=== PATIENT | male | born 1965 | race Caucasian/White ===

== ENCOUNTER 2016-11-25 06:16 | Observation (INO) | payer OTHER ==
--- NOTE | ~2016-11-25 | HP ---
Unit #: [id number] #: [id number] Patient: NAV DOLL [id number] [address] [place], [place] [address] [id number] I MR#: [id number] NAME: NAV DOLL ROOM: 568 Age: 51 Sex: M Admission Date: 11/25/2016 : 1965 Attending Physician: Denis Pat M.D. Primary Care Physician: Vandana Mckoy M.D. HISTORY AND PHYSICAL HISTORY OF PRESENT ILLNESS This is a 51-year-old white male who presented to [facility] (1) and also complained of chest pain. He says he had left substernal chest pain as well as upper abdominal pain associated with shortness of breath and nausea. The pain lasts for 10 to 15 minutes in duration over an hour and a half. He later developed nausea. There was some radiation to his left arm where his hand and forearm felt numb. In the emergency room at [facility], his troponin was initially negative. EKG normal. He denies a history of hypertension, hyperlipidemia or diabetes. His only risk factor for ischemic heart disease is nicotine abuse. He has had no prior cardiac history of testing. He has been taken off Xanax, Soma and a muscle relaxer over the last one month and has been unable to sleep. He usually exercises at work on a regular basis without chest pain. He was given sublingual nitroglycerin which resolved his chest pain but his left arm pain continued. PAST MEDICAL HISTORY 1. Chronic back pain. 2. History of cervical degenerative disc disease with ablation. 3. Insomnia. 4. Active smoker. PAST SURGICAL HISTORY 1. Sinus surgery. 2. Cervical ablation. 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 He smokes 15 cigarettes a day for the past 30 years. He denies illicit drug and alcohol use. FAMILY HISTORY Negative for coronary artery disease. ALLERGIES No known drug allergies. HOME MEDICATIONS Currently, not on any home medications. REVIEW OF SYSTEMS A 10-point review of systems negative except detailed as stated in the HPI. Unit #: [id number] #: [id number] Patient: NAV DOLL PHYSICAL EXAMINATION GENERAL APPEARANCE: This is a well-developed, white male who is in no acute respiratory distress. VITAL SIGNS: Blood pressure 131/84. Heart rate 62. Temperature 97.9. NEUROLOGIC: He is awake, alert and oriented. There are no focal weaknesses. NECK: Trachea is midline. No thyromegaly, lymphadenopathy. No jugular venous distention. HEART: S1, S2 heart sounds are normal. No murmurs, rubs or clicks. Regular rate and rhythm. LUNGS: Clear without rales, rhonchi or wheezes. ABDOMEN: Soft, nontender with bowel sounds present. EXTREMITIES: Without leg edema. SKIN: Warm and dry. DIAGNOSTIC STUDIES LABORATORY: Troponin 0.03. Sodium 140, potassium 3.7, BUN 10, creatinine 0.97, glucose 135. White count 6.5, hemoglobin 16.4, hematocrit 46.7, platelet count 211. Cholesterol 295, triglycerides 565, HDL 37. CARDIOVASCULAR: EKG: Normal sinus rhythm with a rate of 86 beats per minute. IMPRESSION 1. Chest pain, rule out ischemic heart disease. 2. Anxiety/depression. 3. Chronic pain syndrome. PLAN 1. The patient has minimal risk factors for ischemic heart disease. Myocardial infarction has been ruled out with negative troponin and no acute ischemic changes. We will proceed with exercise Cardiolite stress test to rule out ischemic heart disease. 2. Fasting lipid profile will be done. 3. We will ask Dr. London to see the patient for a psychiatric evaluation for control of his anxiety and depression. 4. 2-D echocardiogram will be done to evaluate left ventricular systolic function. ADDENDUM The patient underwent exercise Cardiolite stress test where he ambulated on the treadmill for 8 minutes without chest pain. Images, preliminary, show no ischemic changes. Echocardiogram is currently pending. The patient can be discharged home today after seen by Dr. Reyes. He can follow up with his primary care physician in two to three weeks. Will start on lipid lowering agent with Lipitor 40 mg q.h.s. for control of lipids. Advised the patient to stop smoking. Dictated by Alex Alfred A.P.R.N. for Stephen Campbell/marbella TD: 11/25/2016 13:58 JOB #: [id number] Unit #: [id number] #: [id number] Patient: NAV DOLL HISTORY AND PHYSICAL Page 1 of 1 X Alex Alfred APRN X HISTORY AND PHYSICAL
--- NOTE | ~2016-11-25 | TH ---
Unit #: [id number] #: [id number] Patient: NAV DOLL [id number] [address] [address] [id number] I MR#: [id number] NAME: NAV DOLL : 1965 SEX: M STUDY DATE/TIME: 11/27/2016 UNIT: [facility] ROOM: [facility] STUDY DESCRIPTION: Attending Physician: Denis Pat M.D. Primary Care Physician: Vandana Mckoy M.D. CARDIOLOGY REPORT EXAM Exercise Cardiolite stress test, nuclear portion. PROCEDURE Using technetium 99m labeled Cardiolite, rest and stress SPECT images were obtained. Multiple SPECT images were obtained in various views including horizontal and vertical long axis and short axis views of the left ventricle. Images were obtained by gated SPECT method. The patient was administered 10.93 mCi of Cardiolite at rest. The patient was administered 34.4 mCi of Cardiolite at peak exercise. Total exercise time is 8 minutes. On the stress images, there is a very small area of mild decreased isotope activity in the anteroapical wall. The rest images show normal perfusion. Comparing rest and stress images, there is an extremely small area of mild decreased isotope activity in the anteroapical wall of the left ventricle. The left ventricular ejection fraction is calculated to be 69%. There is no focal wall motion abnormality seen. CONCLUSION 1. Suspicion for a small area of stress-induced ischemia involving the anteroapical wall of the left ventricle. 2. The left ventricular ejection fraction is calculated to be 69%. 3. There is no focal wall motion abnormality seen. 4. Abnormal exercise Cardiolite stress test suspicious for coronary artery disease. Clinical correlation is requested. Dictated by... Stephen Fang TD: 11/27/2016 14:39 JOB #: [id number] Unit #: [id number] #: [id number] Patient: NAV DOLL CARDIOLOGY REPORT Page 1 of 1 X Bibi Austin MD <ELECTRONICALLY SIGNED> 01/04/17 1524 CARDIOLOGY REPORT
--- NOTE | ~2016-11-25 | ST ---
Unit #: [id number] #: [id number] Patient: NAV DOLL [id number] [address] [address] [id number] I MR#: [id number] NAME: NAV DOLL : 1965 SEX: M STUDY DATE/TIME: UNIT: [facility] ROOM: [facility] STUDY DESCRIPTION: Stress Test Attending Physician: Denis Pat M.D. Primary Care Physician: Vandana Mckoy M.D. CARDIOLOGY REPORT EXAM Exercise Cardiolite Stress Test FINDINGS Baseline EKG shows normal sinus rhythm with a rate of 79 beats per minute with nondiagnostic Q waves noted in the inferior leads. The patient exercised on the treadmill using Stefan protocol for 8 minutes achieving a workload of 10.00 METs. 101% of the maximum age predicted heart rate was reached at 171 beats per minute with a maximum blood pressure response of 160/90 mmHg. The patient had no complaints of chest pain, palpitations or dizziness. EKG during exercise showed downsloping ST segment depression of 1 mm in leads V4 through V6. There was also a downsloping ST depression in the inferior leads. EKG returned to baseline in the recovery phase. The test was terminated secondary to achieving target heart rate. IMPRESSION 1. Functional class 1 with good exercise tolerance with a workload of 10.00 METs. 2. 101% of the maximal age predicted heart rate was reached at 171 beats per minute with a hypertensive blood pressure response. 3. EKG during exercise shows a downsloping ST-T depression of 1 mm in the inferior leads as well as V3 through V6 resolved in the recovery phase. 4. Cardiolite was injected at peak exercise with radionuclide test pending. Please correlate these results with nuclear images. Dictated by... Alex Alfred A.P.R.N. for Stephen Campbell/manoj TD: 11/25/2016 14:33 JOB #: [id number] Unit #: [id number] #: [id number] Patient: NAV DOLL CARDIOLOGY REPORT Page 1 of 1 X Alex Alfred APRN CARDIOLOGY REPORT
--- NOTE | ~2016-11-25 | CO ---
Unit #: [id number] #: [id number] Patient: NAV DOLL [id number] [facility]. [place], [place] [address] [id number] I MR#: [id number] NAME: NAV DOLL ROOM: 568 Age: 51 Sex: M Admission Date: 11/25/2016 : 1965 Attending Physician: Denis Pat M.D. Primary Care Physician: Vandana Mckoy M.D. Consultation Date: 11/25/2016 CONSULTATION REPORT REASON FOR CONSULTATION Depression and anxiety. HISTORY OF PRESENT ILLNESS Mr. Doll is a 51-year-old male, seen in room 558, bed 1, on 11/25/2016 at [facility]. The patient was admitted on 11/25/2016 due to chest pain. The patient reported having a lot of problems with the anxiety. The patient reported he was on Xanax for long period of time. Subsequently, this was stopped and having lot of problem with the anxiety and depression. The patient denied any use of any drugs or alcohol. The patient has an outpatient followup with a primary care physician. The patient also reported racing thoughts, unable to shut down his brain and sleep. Denied any suicidal or homicidal ideation. The patient's vital signs; temperature 97.9, pulse 62, respirations 16, blood pressure 134/84, and oxygen saturation 98%. PAST PSYCHIATRIC HISTORY Remarkable for history of anxiety and depression outpatient treatment. No history of any suicide attempt or any inpatient psychiatric treatment. MEDICAL HISTORY Remarkable for high cholesterol. MEDICATIONS Lipitor. FAMILY HISTORY AND SOCIAL HISTORY The patient has a good support system. No history of abuse. No history of any substance abuse. REVIEW OF SYSTEMS Complete review of systems unremarkable except as mentioned above. Vital signs, please see above. MENTAL STATUS EXAMINATION General appearance; the patient is dressed casually, lying comfortably in bed, dressed in hospital attire. Attention span and concentration, fair. Speech, regular rate and somewhat pressured. Oriented in time, place, and person. Mood and affect, sad, dysphoric, anxious. Thought process, coherent. Thought content, the patient denied any thoughts of harming self or others or any psychotic symptom. Recent and remote memory, fair. Language, intact. Fund of knowledge, fair. Insight and judgment, fair to slightly impaired. Unit #: [id number] #: [id number] Patient: NAV DOLL DIAGNOSES Psychiatric: Major depressive disorder, recurrent, severe, F33.2; anxiety disorder, not otherwise specified, F40.01. Secondary diagnosis: Deferred. Medical diagnosis: Please refer to H and P. Stressors: Psychosocial stressors. ASSESSMENT/PLAN 1. Supportive psychotherapy and psychoeducation were provided to the patient. 2. Educated about benefits and side effects of medication and course and prognosis of illness. 3. Advised to start the patient on Vistaril 25 mg t.i.d. for anxiety, Zyprexa 10 mg at bedtime for mood stabilization. The patient was advised to follow up in the outpatient clinic and given crisis line #[phone]. Please feel free to call if any questions. Telephone number is [phone]. Dictated by... Stephen Spears/miguel TD: 11/27/2016 02:54 JOB #: [id number] CONSULTATION REPORT Page 1 of 1 X Clifford Reyes MD X CONSULTATION REPORT
[2016-11-25 10:09] LABS: CHOLESTEROL 295 mg/dL (0-200); HDL CHOLESTEROL 37 mg/dL (29-75)
[2016-11-25 10:11] LABS: TRIGLYCERIDES 565 mg/dL (10-160)
[2016-11-25] MEDS ORDERED: ZYPREXA10 MG PO (15:55)
[2016-11-25] MEDS ORDERED: VISTARIL50 MG PO (15:55)
[2016-11-25] MEDS ORDERED: LIPITOR40 MG PO (15:56)
== END 2016-11-25 16:39 | disposition home or self-care (01) ==
LOC: C5C 06:16
PROVIDERS: Internal Medicine Cardiovascular Disease
DX: R07.9 Chest pain, unspecified (principal); G89.4 Chronic pain syndrome; M54.9 Dorsalgia, unspecified; F41.9 Anxiety disorder, unspecified; F33.2 Major depressive disorder, recurrent severe without psychotic features; F17.210 Nicotine dependence, cigarettes, uncomplicated; Z79.899 Other long term (current) drug therapy; Z98.890 Other specified postprocedural states
CPT/HCPCS: 78452; 80061; 93017; 93306; A9500; G0378